=== PATIENT | female | born 1985 | race Caucasian/White ===

== ENCOUNTER 2017-03-18 09:14 | Inpatient (IN) | payer MEDICAID, OTHER ==
[~2017-03-18] VITALS: Ht 157.5 cm; Wt 81.2 kg
[~2017-03-18 09:14] MED LIST: IBUP-1222 PO; OXYC-302 PO
[2017-03-18] MEDS ORDERED: LACTATED RINGERS 1,000 ML IVBOLUS ONE (10:30)
[2017-03-18] MEDS: LACTATED RINGERS 1,000 ML IV SCH ×8 (10:30→23:17)
[2017-03-18] MEDS ORDERED: METOCLOPRAMIDE 5 MG/ML, 2ML IV ONE (10:30)
[2017-03-18] MEDS ORDERED: SODIUM CITRATE/CITRIC ACID 30 ML UDC PO ONE (10:30)
[2017-03-18] MEDS ORDERED: PLEASE ENTER HEIGHT AND WEIGHT MC SCH (10:30)
[2017-03-18 10:34] VITALS: BP 116/75
[2017-03-18 10:35] LABS: HEMATOCRIT 37.1 % (34.6-47.8); HEMOGLOBIN 12.4 g/dL (11.7-16.4); WHITE BLOOD COUNT 5.5 x10^3/uL (3.4-10)
[2017-03-18] MEDS ORDERED: morphine SULFATE/PF 1 MG/ML, 10ML ONE (10:47)
[2017-03-18] MEDS ORDERED: PHENYLEPHRINE 10 MG/ML ONE (11:10)
[2017-03-18] MEDS ORDERED: EPHEDRINE 50 MG/ML, 1ML ONE (11:10)
[2017-03-18] MEDS ORDERED: CEFAZOLIN 1,000 MG ONE (11:10)
[2017-03-18] MEDS ORDERED: PREN1TAB60 PO (11:13)
[2017-03-18] MEDS ORDERED: SODIUM CITRATE/CITRIC ACID 30 ML UDC ONE (11:21)
[2017-03-18] MEDS ORDERED: MISOPROSTOL 200 MCG TABLET ONE (11:22)
[2017-03-18] MEDS ORDERED: OXYTOCIN 30U/ 0.9% NaCL 500ML 500 ML ONE (11:22)
[2017-03-18] MEDS ORDERED: METOCLOPRAMIDE 5 MG/ML, 2ML ONE (11:22)
[2017-03-18] MEDS: OXYTOCIN 30U/ 0.9% NaCL 500ML 500 ML IV SCH ×4 (13:17→23:17)
[2017-03-18] MEDS ORDERED: METOCLOPRAMIDE 5 MG/ML, 2ML IV PRN (13:30)
[2017-03-18] MEDS ORDERED: ONDANSETRON 2MG/ML, 2ML IV PRN (13:30)
[2017-03-18] MEDS ORDERED: IBUPROFEN 600 MG TABLET PO PRN (13:30)
[2017-03-18] MEDS ORDERED: CALCIUM CARBONATE 500 MG TAB.CHEW PO PRN (13:30)
[2017-03-18] MEDS ORDERED: OXYcodone/APAP 5/325MG TABLET PO PRN (13:30)
[2017-03-18] MEDS ORDERED: SIMETHICONE 80 MG CHEW TAB PO PRN (13:30)
[2017-03-18] MEDS ORDERED: KETOROLAC 30 MG/1 ML ONE (13:44)
[2017-03-18] MEDS ORDERED: DIPHENHYDRAMINE 50 MG/ML, 1ML ONE (13:45)
[2017-03-18] MEDS: KETOROLAC 30 MG/1 ML IV SCH ×2 (13:48→19:50)
[2017-03-18] MEDS: DIPHENHYDRAMINE 50 MG/ML, 1ML IVPush PRN ×2 (13:56→20:05)
[2017-03-18 15:15] VITALS: BP 110/71
[2017-03-18 16:15] VITALS: BP 106/69
[2017-03-18 17:15] VITALS: BP 108/68
[2017-03-18] MEDS: OXYcodone/APAP 5/325MG TABLET PO PRN (17:26)
[2017-03-18 19:50] VITALS: BP 117/73
[2017-03-19] VITALS: BP 100/67
[2017-03-19] MEDS: KETOROLAC 30 MG/1 ML IV SCH ×4 (02:07→21:23)
[2017-03-19] MEDS: LACTATED RINGERS 1,000 ML IV SCH ×11 (02:09→21:17)
[2017-03-19] MEDS: OXYcodone/APAP 5/325MG TABLET PO PRN ×3 (04:40→18:00)
[2017-03-19] MEDS: OXYTOCIN 30U/ 0.9% NaCL 500ML 500 ML IV SCH ×4 (06:09→19:17)
[2017-03-19 08:00] VITALS: BP 100/66
[2017-03-19] MEDS: DOCUSATE 100 MG CAPSULE PO PRN ×2 (08:05→21:23)
[2017-03-19] MEDS: PRENATAL VIT/IRON/FA 1 EACH TABLET PO SCH (08:06)
[2017-03-19] MEDS ORDERED: DIPH,PERTUSS(ACELL),TET VAC/PF NC IM-VACC ONE ×2 (12:23→12:30)
[2017-03-19 12:32] VITALS: BP 104/67
[2017-03-19 20:25] VITALS: BP 123/83
[2017-03-20] MEDS: OXYTOCIN 30U/ 0.9% NaCL 500ML 500 ML IV SCH ×2 (02:09→05:17)
[2017-03-20] MEDS: LACTATED RINGERS 1,000 ML IV SCH ×6 (02:09→10:30)
[2017-03-20] MEDS: KETOROLAC 30 MG/1 ML IV SCH ×2 (03:24→07:30)
[2017-03-20] MEDS: DOCUSATE 100 MG CAPSULE PO PRN (07:42)
[2017-03-20] MEDS: PRENATAL VIT/IRON/FA 1 EACH TABLET PO SCH (07:42)
[2017-03-20 07:50] VITALS: BP 104/69
[2017-03-20] MEDS: OXYcodone/APAP 5/325MG TABLET PO PRN (11:54)
== END 2017-03-20 12:46 | disposition home or self-care (01) | DRG 766 ==
LOC: LDIP 10:07 → 2NW 15:11
PROVIDERS: ADMIT Obstetrics & Gynecology; ATTEND Obstetrics & Gynecology
PROC: 10D00Z1 Extraction of Products of Conception, Low, Open Approach (ICD-10-PCS; principal; 2017-03-18)
DX: O34.211 Maternal care for low transverse scar from previous cesarean delivery (principal); O99.814 Abnormal glucose complicating childbirth; Z3A.39 39 weeks gestation of pregnancy; Z37.0 Single live birth
CPT/HCPCS: 36415; 85025; 86850; 86900; 90715; J0690; J1885; J2274; J1200; J2370; J2590; J2765; J7120